=== PATIENT | male | born 1940 | race Caucasian/White ===

== ENCOUNTER → 2016-12-05 | Outpatient (CLI) | payer OTHER | LOC: HEART 5 08:13 | DX: I20.8 Other forms of angina pectoris (principal); R06.02 Shortness of breath; R00.0 Tachycardia, unspecified; R00.2 Palpitations | CPT/HCPCS: 78452; A9502; J2785 ==

== ENCOUNTER → 2017-01-14 | Outpatient (CLI) | payer OTHER | LOC: LAB 13:47 | PROVIDERS: Internal Medicine Cardiovascular Disease | DX: I20.8 Other forms of angina pectoris (principal); J44.9 Chronic obstructive pulmonary disease, unspecified; E78.5 Hyperlipidemia, unspecified; I10 Essential (primary) hypertension; R00.2 Palpitations; R00.0 Tachycardia, unspecified | CPT/HCPCS: 36415; 80053; 80061; 83735; 84439; 84443; 84481 ==

== ENCOUNTER → 2020-11-20 | Outpatient (CLI) | payer OTHER, BLACK LUNG ==
[~2020-11-20] MED LIST: ALBUTEROL1.25 MG/3 INH; AVODART0.5 MG PO; BAYER CHEWABLE81 MG PO; CARDIZEM CD240 MG PO; COZAAR100 MG PO; CRESTOR5 MG PO; DALIRESP500 MCG PO; FLOMAX0.4 MG PO; ISORDIL TAB 3030 MG PO; LOPRESSOR 25 MG25 MG PO; LORTAB 7.5-3251 EACH PO; NORVASC 5 MG TAB5 MG PO; PROSCAR5 MG PO; PROVENTIL HFA6.7 GM INH
== END ==
LOC: HEART 5 14:30
DX: R55 Syncope and collapse (principal); R00.2 Palpitations; R06.02 Shortness of breath; I51.7 Cardiomegaly; I51.9 Heart disease, unspecified
CPT/HCPCS: 93306